=== PATIENT | male | born 1980 | race Caucasian/White ===

== ENCOUNTER 2020-09-08 06:38 | Day surgery (SDC) | payer OTHER ==
[~2020-09-08] VITALS: Ht 167.6 cm; Wt 66.5 kg
[~2020-09-08 06:38] MED LIST: AIRDUO DIGIHAL1 EACH; BUDESONIDE-FO10.2 G1; CLARITIN10 M2 PO; IPRATROPIU0.2 MG/1 M INH; MULTI VITAMIN1 EACH PO; VENTOLIN HFA18 GM; ZYRTEC10 M3 PO
--- NOTE | 2020-09-08 08:37 | NUR ---
09/08/20 0837 Basia Flynn 0820- PT TO PACU IN SUPINE POSITION. EYES CLOSED. DOES NOT RESPOND TO VERBAL OR TACTILE STIMULI. BREATHING OBSTRUCTIVE WITHOUT JAW SUPPORT. BREATHING EASY AND UNLABORED WITH RN SUPPORTING JAW. SPO2 >95% ON 6 L O2 VIA NC. 0825- PT CONTINUES TO REQUIRE JAW THRUST. PT DOES NOT RESPOND TO VERBAL OR TACTILE STIMULI. BREATHING EASY AND UNLABORED. SPO2 >95% ON 6 L O2 VIA NC. 0830-ORAL AIRWAY ATTEMPTED BY RN. PT WITHDRAWS TO STIMULI AND GAG REFLEX PRESENT BY TONGUE BLADE. HOB ELEVATED. BREATHING EASY AND UNLABORED WITHOUT JAW THRUST. SPO2 >95% ON 6 L O2 VIA NC. 0835- PT REQUIRING FREQUENT REMINDING TO TAKE DEEP BREATHS. SPO2 >95% ON 3 L O2 VIA NC. PT REMAINS VERY DROWSY, DOES NOT OPEN EYES. BREATHING EASY AND UNLABORED.
--- NOTE | 2020-09-09 07:37 | OR ---
[facility] [address] [place], [place] [address] Signed DATE OF OPERATION: 09/08/2020 SURGEON: Lucille Flores MD PREOPERATIVE DIAGNOSES: 1. Proximal esophageal dysphagia. 2. Proximal esophageal stricture. POSTOPERATIVE DIAGNOSES: 1. Mild diffuse gastritis. 2. GE junction at 40 cm. PROCEDURES: EGD with CLOtest and biopsies of the antrum and dilation to 54-Polish. ESTIMATED BLOOD LOSS: None. INDICATIONS: Taran is a 40-year-old gentleman, who spent a number of years in the . 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 He has been around a lot of fumes and other various allergens. He has what appears to be allergy-induced asthma and allergic rhinitis. He is on a number of different medications in that regard. 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 He stays at home and has to deal with hay in the grass and so forth on a daily basis. He thinks he is having esophageal spasm, but his is concerned that he may have a proximal esophageal stricture. She happens to be one of our physicians assistants here in town. He has had food gets stuck in around the sternal notch and he has to use a little spray to gag it back up. He has learned to change his diet a bit and to help in that regard. In the office, I had met with him and reviewed the above findings. We had sent him for a barium swallow and he has a 50% narrowing just below the level of the vocal cords and the esophagus. In the office, I gave him a pamphlet on upper endoscopy and we looked at that together. He understands the nature of the test along with the risks including, but not limited to gas bloating, crampy abdominal pain, bleeding, perforation requiring surgery, and missed diagnosis. He also understands the need for IV conscious sedation. He and his had expressed understanding and wished to proceed. DESCRIPTION OF PROCEDURE: I met with Taran and his in our preop area. We reviewed the barium swallow and decided to proceed with dilation. He was taken into the endoscopy suite and placed in Electronically Signed By: LUCILLE FLORES MD 09/09/20 0737 PATIENT NAME: TARAN YODER OPERATIVE REPORT DATE OF : 80 REPORT #: [id number] PHYSICIAN: LUCILLE FLORES MD PCP: JERAMY ORTA MD REPORT IS CONFIDENTIAL AND NOT TO BE RELEASED WITHOUT AUTHORIZATION [facility] [address] [place], [place] [address] Signed the supine position. He was given lidocaine spray for the posterior oropharynx. He was given a total of 9 mg of Versed and 100 mcg of fentanyl to help cover the case. However, he was far too awake to undergo dilation and we had to call in our nurse caustic operator for propofol infusion. The adult gastroscope had been introduced and advanced under direct visualization of the camera. His vocal cords and arytenoids in the posterior oropharynx seemed to be fine. The scope would be passed down through the upper esophagus very carefully and we did not see any obvious stricture or feel any obvious stricture with the scope. The esophagus was unremarkable. The GE junction is around 40 cm. Only mild disruption to the Z-line. No Mario's mucosa, no distal esophagitis. In the stomach, he had diffuse mild erythematous changes throughout, consistent with mild gastritis. The duodenal bulb and the duodenum itself were unremarkable. Once back in the stomach, we took a biopsy of the antrum for CLOtest as well as pathologic review. Upon retroflexion of the scope, we could not see an obvious hiatal hernia. There was no gastric or esophageal varices. The scope was withdrawn back up through the area of the GE junction, which was compliant without stricture. We then had him to do his dilation, but he was too awake and would not tolerate the wire. We therefore had to have our anesthesia provider come and add propofol. After that, I reinserted the scope. Again, no obvious stricture in the proximal esophagus with the gastroscope. The wire was inserted and we initially dilated him to 48-Polish. We then used our 54-Polish Bhutanese dilator and it passed without resistance. It was a largest dilator that would fit his mouth in between his teeth. The adult gastroscope had been introduced after each dilation and we saw no break in the mucosa in his proximal esophagus or anywhere in the esophagus itself. The stomach itself was fine. The biopsy sites from the CLOtest in the antrum were fine. After this, the gas was suctioned out and the gastroscope removed. Taran tolerated his procedure quite well. RECOMMENDATIONS: I will see Taran back in my office in 7 to 14 days to review his results. Lucille Flores MD ALB/MODL /[id number] cc: [place], [place] Electronically Signed By: LUCLILE FLORES MD 09/09/20 0737 PATIENT NAME: TARAN YODER OPERATIVE REPORT DATE OF : 80 REPORT #: [id number] PHYSICIAN: LUCILLE FLORES MD PCP: JERAMY ORTA MD REPORT IS CONFIDENTIAL AND NOT TO BE RELEASED WITHOUT AUTHORIZATION [address] [address] Signed Chart Filed Incomplete Lucille Flores MD Copies: CHART FILED INCOMPLETE LUCILLE FLORES MD ~ Electronically Signed By: LUCILLE FLORES MD 09/09/20 0737 PATIENT NAME: TARAN YODER OPERATIVE REPORT DATE OF : 80 REPORT #: [id number] PHYSICIAN: LUCILLE FLORES MD PCP: JERAMY ORTA MD REPORT IS CONFIDENTIAL AND NOT TO BE RELEASED WITHOUT AUTHORIZATION
--- NOTE | 2020-09-09 16:02 | PATH ---
[facility] [address] [place], [place] [address] Signed SPECIMEN(S): A ANTRUM/ANTRAL BIOPSY SPECIMEN SOURCE: A. ANTRUM/ANTRAL BIOPSY CLINICAL HISTORY: Dysphagia; proximal esophageal stricture; gastritis; esophageal stricture MICROSCOPIC DESCRIPTION: Histologic sections of all submitted blocks are examined by light microscopy. These findings, together with the gross examination, support the pathologic diagnosis. FINAL PATHOLOGIC DIAGNOSIS: Stomach, antrum, biopsy: - Antral/oxyntic mucosa with no histopathologic abnormality. - Negative for Helicobacter organisms on HE stain. - Negative for dysplasia or malignancy. NAL:cml:C2NR GROSS DESCRIPTION: The specimen, labeled "BN," and designated on the requisition "antrum biopsy," is received in formalin and consists of one elongated maldonado soft tissue fragment that measures 0.7 cm in greatest dimension. The specimen is entirely submitted in cassette (A1). AI (under the direct supervision of a pathologist) The Gross Description was prepared using a voice recognition system. The report was reviewed for accuracy; however, sound-alike word errors, addition and/or deletions may occur. If there is any question about this report, please contact Client Services. PERFORMING LABORATORY: The technical component was performed by [facility], [address] [place] [id number] (Director Of Entertainment: Pau Acosta MD; CLIA# [id number]). [facility], [address] [address] (CLIA# [id number]). Diagnostician: Kristine De MD Pathologist Electronically Signed 09/09/2020 PATIENT NAME: JOHNATHAN YODER PATHOLOGY DATE OF : 80 REPORT #: [id number] PHYSICIAN: [facility] PCP: JERAMY ORTA MD REPORT IS CONFIDENTIAL AND NOT TO BE RELEASED WITHOUT AUTHORIZATION [address] [address] Signed Copies: ~ PATIENT NAME: JOHNATHAN YODER PATHOLOGY DATE OF : 80 REPORT #: [id number] PHYSICIAN: [facility] PCP: JERAMY ORTA MD REPORT IS CONFIDENTIAL AND NOT TO BE RELEASED WITHOUT AUTHORIZATION
== END 2020-09-08 09:30 | disposition home or self-care (01) ==
LOC: DS 06:38 → OPS 06:38 → DS 06:45 → OPS 06:45
PROVIDERS: ATTEND Colon & Rectal Surgery
PROC: 0D718ZZ Dilation of Upper Esophagus, Via Natural or Artificial Opening Endoscopic (ICD-10-PCS; 2020-09-08)
PROC: 0DB68ZX Excision of Stomach, Via Natural or Artificial Opening Endoscopic, Diagnostic (ICD-10-PCS; principal; 2020-09-08 06:45)
DX: R13.10 Dysphagia, unspecified (principal); K29.70 Gastritis, unspecified, without bleeding; J45.909 Unspecified asthma, uncomplicated; Z91.048 Other nonmedicinal substance allergy status
CPT/HCPCS: 99153; G0500; J2250; J7121